=== PATIENT | female | born 2000 | race Caucasian/White ===

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

== ENCOUNTER 2023-05-25 14:11 | Emergency (ER) | payer OTHER ==
[2023-05-25 14:25] VITALS: TEMP 97.8
--- NOTE | 2023-05-25 14:41 | ED ---
General Adult HPI - General Source: patient, RN notes reviewed Mode of arrival: ambulatory Limitations: no limitations <David Harris - Last Filed: 05/25/23 14:39> - General Source: RN notes reviewed, old records reviewed Mode of arrival: ambulatory Limitations: no limitations - History of Present Illness -: days(s) (4) Location: chest Radiation: non-radiation Severity scale (1-10): 3 Quality: aching Consistency: intermittent Improves with: none Worsens with: none Associated Symptoms: denies other symptoms Treatments Prior to Arrival: none <Francisco Nelson - Last Filed: 06/01/23 16:22> - General Chief complaint: Chest Pain Stated complaint: chest pain Time Seen by Provider: 05/25/23 14:39 - History of Present Illness Initial comments: Patient is a 22-year-old female presented ER with chief complaint of left-sided chest discomfort. Patient is . Patient states the past 4 days she has been having sharp stabbing pain radiating to her shoulder. Patient denies any lightheadedness, shortness of breath, dizziness. (David Harris) This is a 22-year-old female to the emergency department for evaluation of left- sided chest pain left-sided chest discomfort radiating to shoulder, some nausea but no other significant complaints. No travel history or sick contacts no fevers cough or congestion (Francisco Nelson) - Related Data Home Medications Medication Instructions Recorded Confirmed Flb-Poit-Rhhim Acid 1 cap PO DAILY 05/25/23 05/25/23 [-U Capsule (formulary)] busPIRone HCL [Buspirone HCl] 10 mg PO HS 05/25/23 05/25/23 Allergies Allergy/AdvReac Type Severity Reaction Status Date / Time Penicillins Allergy Unknown Verified 05/25/23 16:47 Childhood Review of Systems ROS Other: All systems not noted in ROS Statement are negative. <David Harris - Last Filed: 05/25/23 14:39> ROS Other: All systems not noted in ROS Statement are negative. <Francisco Nelson - Last Filed: 06/01/23 16:22> ROS Statement: Those systems with pertinent positive or pertinent negative responses have been documented in the HPI. Past Medical History Past Medical History: No Reported History History of Any Multi-Drug Resistant Organisms: None Reported Past Surgical History: No Surgical Hx Reported Past Psychological History: Depression Smoking Status: Vaper Past Alcohol Use History: None Reported Past Drug Use History: Marijuana <David Harris - Last Filed: 05/25/23 14:39> General Exam Limitations: no limitations <David Harris - Last Filed: 05/25/23 14:39> General appearance: alert, in no apparent distress Head exam: Present: atraumatic, normocephalic, normal inspection Eye exam: Present: normal appearance, PERRL, EOMI. Absent: scleral icterus, conjunctival injection, periorbital swelling ENT exam: Present: normal exam, mucous membranes moist Neck exam: Present: normal inspection. Absent: tenderness, meningismus, lymphadenopathy Respiratory exam: Present: normal lung sounds bilaterally. Absent: respiratory distress, wheezes, rales, rhonchi, stridor Cardiovascular Exam: Present: regular rate, normal rhythm, normal heart sounds. Absent: systolic murmur, diastolic murmur, rubs, gallop, clicks GI/Abdominal exam: Present: soft, normal bowel sounds. Absent: distended, tenderness, guarding, rebound, rigid Extremities exam: Present: normal inspection, full ROM, normal capillary refill. Absent: tenderness, pedal edema, joint swelling, calf tenderness Back exam: Present: normal inspection Neurological exam: Present: alert, oriented X3, CN II-XII intact Psychiatric exam: Present: normal affect, normal mood Skin exam: Present: warm, dry, intact, normal color. Absent: rash <Francisco Nelson - Last Filed: 06/01/23 16:22> - General Exam Comments Initial Comments: Visual Physical Exam Vital signs reviewed General: Well-appearing, nontoxic, no acute distress. Head: Normocephalic, atraumatic Eyes: PERRLA, EOMI ENT: Airway patent Chest: Nonlabored breathing Skin: No visual rash, normal skin tone Neuro: Alert and oriented 3 Musculoskeletal: No gross abnormalities (David Harris) Course <Francisco Nelson - Last Filed: 06/01/23 16:22> Vital Signs 05/25/23 05/25/23 14:22 16:51 Temperature 97.8 F Pulse Rate 85 82 Respiratory 16 18 Rate Blood Pressure 126/70 117/73 O2 Sat by Pulse 100 100 Oximetry - Reevaluation(s) Reevaluation #1: Medical records reviewed (Francisco Nelson) Reevaluation #2: Patient symptoms improved (Francisco Nelson) Reevaluation #3: Patient informed results and questions are answered (Francisco Nelson) Reevaluation #4: Was pt. sent in by a medical professional or institution (SAMARA Vidal, SENIOR QUALITY ASSURANCE SPECIALIST, urgent care, hospital, or long term...) When possible be specific @ -no Did you speak to anyone other than the patient for history (EMS, parent, family, police, friend...)? What history was obtained from this source @ -no Did you review nursing and triage notes (agree or disagree)? Why? @ -agree Are old charts reviewed (outside hosp., previous admission, EMS record, old EKG, old radiological studies, urgent care reports/EKG's, long term records)? Report findings @ -yes Differential Diagnosis (chest pain, altered mental status, abdominal pain women, abdominal pain men, vaginal bleeding, weakness, fever, dyspnea, syncope, headache, dizziness, GI bleed, back pain, seizure, CVA, palpatations, mental health, musculoskeletal)? @ -prior EKG interpreted by me (3pts min.). @ -yes X-rays interpreted by me (1pt min.). @ -yes negative for acute disease CT interpreted by me (1pt min.). @ -no U/S interpreted by me (1pt. min.). @ -no What testing was considered but not performed or refused? (CT, X-rays, U/S, labs)? Why? @ -none What meds were considered but not given or refused? Why? @ -none Did you discuss the management of the patient with other professionals (professionals i.e. SAMARA Vidal, SENIOR QUALITY ASSURANCE SPECIALIST, lab, RT, psych nurse, social sciences research scientist, housing inspectors, teacher, licensed loan officer, correctional counselor/case manager)? Give summary @ -no Was smoking cessation discussed for >3mins.? @ -no Were there social determinants of health that impacted care today? How? (Homelessness, low income, unemployed, alcoholism, drug addiction, transportation, low edu. Level, literacy, decrease access to med. care, alf, rehab)? @ -none Was there de-escalation of care discussed even if they declined (Discuss DNR or withdrawal of care, Hospice)? DNR status @ -no What co-morbidities impacted this encounter? (DM, HTN, Smoking, COPD, CAD, Cancer, CVA, ARF, Chemo, Hep., AIDS, mental health diagnosis, sleep apnea, morbid obesity)? @ -none Was patient admitted / discharged? Hospital course, mention meds given and route, prescriptions, significant lab abnormalities, going to OR and other pertinent info. @ - 22 female to the emergency department for evaluation 4 days vaginal delivery. Patient does have cough congestion with cough causes her some significant rib pain but has no acute findings, pain is well-controlled here in the ER can be discharged home Was critical care preformed (if so, how long)? @ -no Undiagnosed new problem with uncertain prognosis? @ -no Drug Therapy requiring intensive monitoring for toxicity (Heparin, Nitro, Insulin, Cardizem)? @ -no Were any procedures done? @ -no Diagnosis/symptom? @ -Chest pain Acute, or Chronic, or Acute on Chronic? @ -Acute Uncomplicated (without systemic symptoms) or Complicated (systemic symptoms)? @ -Complicated Side effects of treatment? @ -no Exacerbation, Progression, or Severe Exacerbation? @ -exacerbation Poses a threat to life or bodily function? How? (Chest pain, USA, PA, pneumonia, PE, COPD, DKA, ARF, appy, cholecystitis, CVA, Diverticulitis, Homicidal, Suicidal, threat to staff... and all critical care pts) @ -yes 06/01/23 16:21 (Francisco Nelson) Reevaluation #5: Differential Chest Pain: Stable Angina, Unstable Angina, STEMI, NSTEMI Aortic Dissection, Pneumothorax, Musculoskeletal, Esophageal Spasm GERD, Cholecystitis, Pancreatitis, Zoster, this is not meant to be an all-inclusive list. (Francisco Nelson) EKG Findings - EKG Comments: EKG Findings:: EKG is sinus 61 DC 150 QRS 91 QTC 388 - EKG Results: EKG: interpreted by ERMD <Francisco Nelson - Last Filed: 06/01/23 16:22> Medical Decision Making <David Harris - Last Filed: 05/25/23 14:39> - EKG Data -: EKG Interpreted by [facility] - Radiology Data Radiology results: report reviewed (Chest x-ray is negative for acute disease), image reviewed <Francisco Nelson - Last Filed: 06/01/23 16:22> - Medical Decision Making I performed the quick note portion of the exam. Electronically signed by David Harris PA-C (David Harris) - Lab Data Lab Results 05/25/23 05/25/23 Range/Units 15:37 15:37 Urine Color Light Yellow Urine Appearance Clear (Clear) Urine pH 5.5 (5.0-8.0) Ur Specific [place] 1.023 (1.001-1.035) Urine Protein Negative (Negative) Urine Glucose (UA) Negative (Negative) Urine Ketones Negative (Negative) Urine Blood Negative (Negative) Urine Nitrite Negative (Negative) Urine Bilirubin Negative (Negative) Urine Urobilinogen <2.0 (<2.0) mg/dL Ur Leukocyte Esterase Small H (Negative) Urine WBC 11 H (0-5) /hpf Ur Squamous Epith Cells 8 H (0-4) /hpf Urine Bacteria Rare H (None) /hpf Urine Mucus Rare H (None) /hpf Urine HCG, Qual Not Detected (Not Detectd) Disposition <David Harris - Last Filed: 05/25/23 14:39> Is patient prescribed a controlled substance at d/c from ED?: No Time of Disposition: 16:50 <Francisco Nelson - Last Filed: 06/01/23 16:22> Clinical Impression: Atypical chest pain, Chest pain Disposition: HOME SELF-CARE Condition: Good Instructions (If sedation given, give patient instructions): Costochondritis (ED) Referrals: None,Stated [Primary Care Provider] - 1-2 days
[2023-05-25] MEDS ORDERED: ACETAMINOPHEN TAB 500 MG TAB PO STA (15:57)
[2023-05-25] MEDS ORDERED: IBUPROFEN 800 MG TAB PO STA (15:57)
[2023-05-25 16:11] LABS: Appearance,Urine Clear (Clear); Bacteria,Urine Rare /hpf; Bilirubin,Urine Negative (Negative); Blood,Urine Negative (Negative); Color,Urine Light Yellow; Glucose,Urine (UA) Negative (Negative); Ketones,Urine Negative (Negative); Leukocyte Esterase,Urine Small (Negative); Mucus,Urine Rare /hpf; Nitrite,Urine Negative (Negative); PH, Urine 5.5 (5.0-8.0); Protein,Urine Negative (Negative); Specific Gravity,Urine 1.023 (1.001-1.035); Squamous Epithelial Cell,Urine 8 /hpf (0-4); Urobilinogen,Urine <2.0 mg/dL (<2.0); WBC,Urine 11 /hpf (0-5)
--- NOTE | 2023-05-25 16:47 | XR ---
EXAMINATION TYPE: XR chest 2V DATE OF EXAM: 05/25/2023 4:34 PM CLINICAL INDICATION:Female, 22 years old with history of pain; [facility] COMPARISON: None TECHNIQUE: XR chest 2V Frontal and lateral views of the chest. FINDINGS: Lungs/Pleura: There is no evidence of pleural effusion, focal consolidation, or pneumothorax. Pulmonary vascularity: Unremarkable. Heart/mediastinum: Cardiomediastinal silhouette is unremarkable. Musculoskeletal: No acute osseous pathology. Other findings: None IMPRESSION: No acute cardiopulmonary disease/process.
[2023-05-25 17:11] VITALS: BP 117/73; PULSE 82; RESP 18
== END 2023-05-25 16:58 | disposition home or self-care (01) ==
LOC: EC 14:11
DX: O99.893 Other specified diseases and conditions complicating puerperium (principal); R07.89 Other chest pain; O99.345 Other mental disorders complicating the puerperium; F53.0 Postpartum depression; O99.335 Smoking (tobacco) complicating the puerperium; F17.290 Nicotine dependence, other tobacco product, uncomplicated; O99.325 Drug use complicating the puerperium; F12.90 Cannabis use, unspecified, uncomplicated; Z88.0 Allergy status to penicillin; Z79.899 Other long term (current) drug therapy
CPT/HCPCS: 71046; 81001; 81025; 93005; 99285